=== PATIENT | female | born 1940 | race Caucasian/White ===

== ENCOUNTER → 2017-01-17 | Outpatient (CLI) | payer MEDICARE, BC ==
[~2017-01-17] MED LIST: EPITOL PO; FERROUS SU325 MG/TAB PO; FOSAMAX70 MG PO; LEVOXYL0.025 MG PO; PRILOSEC 20MG20 MG PO; TOPROL XL 25MG25 MG PO; TYLENOL 325MG325 MG PO
== END ==
LOC: MC.RAD 09:51
DX: Z12.31 Encounter for screening mammogram for malignant neoplasm of breast (principal)

== ENCOUNTER 2017-10-13 14:51 | Emergency (ER) | payer MEDICARE, BC ==
[~2017-10-13] VITALS: Ht 157.5 cm; Wt 72.7 kg
[2017-10-13 14:55] VITALS: TEMP 97.7
[2017-10-13] MEDS ORDERED: EXCEDRIN1 TAB PO (15:11)
[2017-10-13 15:22] LABS: BASO % 0.4 % (0.0-2.0); EOS % 0.4 % (0-4.0); GRAN # 5.4 (1.4-6.5); GRAN % 80.9 % (42.2-75.2); LYMPH # 0.8 (1.2-3.4); LYMPH % 11.2 % (20.0-51.0); MEAN CELL VOLUME 101 fl (80.0-100.0); MEAN CORPUSCULAR HGB CONC 34 g/dl (33.0-37.0); MEAN PLATELET VOLUME 10.8 fl (7.4-10.4); MONO # 0.5 (0.1-0.6); MONO % 6.7 % (1.7-9.3); PLATELET COUNT 185 K/mm3 (130-400); REDCELL DISTRIBUTION WIDTH-CV 13.2 % (11.5-14.5)
[2017-10-13 15:27] LABS: HEMATOCRIT 33.4 % (37.0-47.0); HEMOGLOBIN 11.2 g/dl (12.5-16.0); MEAN CORPUSCULAR HEMOGLOBIN 34 pg (27.0-31.0)
[2017-10-13 15:32] LABS: ALANINE AMINOTRANSFERASE 84 U/L (9-52); ALKALINE PHOSPHATASE 94 U/L (50-136); ANION GAP 13 mmol/L (7-16); AST,SGOT 53 U/L (15-37); BILIRUBIN,TOTAL 0.3 mg/dL (0.0-1.0); BLOOD UREA NITROGEN 20 mg/dL (7-17); CALCIUM 8.9 mg/dL (8.4-10.2); CARBON DIOXIDE 22 mmol/L (22-30); CHLORIDE 103 mmol/L (98-107); CREATININE, serum 0.91 mg/dL (0.52-1.25); GLUCOSE 124 mg/dL (74-106); POTASSIUM 4.3 mmol/L (3.4-5.0); SODIUM 138 mmol/L (137-145); TOTAL PROTEIN 6.9 gm/dL (6.4-8.2)
[2017-10-13 15:44] LABS: TROPONIN-I < 0.012 ng/mL (0.000-0.034)
[2017-10-13 17:19] VITALS: BP 171/83; PULSE 54
== END 2017-10-13 17:19 | disposition short-term general hospital (02) ==
LOC: COL.ER 14:51
PROVIDERS: Emergency Medicine
DX: I44.1 Atrioventricular block, second degree (principal); I10 Essential (primary) hypertension; E03.9 Hypothyroidism, unspecified; G50.0 Trigeminal neuralgia; Z90.89 Acquired absence of other organs; Z98.890 Other specified postprocedural states; Z82.49 Family history of ischemic heart disease and other diseases of the circulatory system

== ENCOUNTER → 2018-03-07 | Outpatient (CLI) | payer MEDICARE, BC ==
[~2018-03-07] MED LIST changes: +EXCEDRIN1 TAB PO
== END ==
LOC: MC.RAD 13:36
DX: Z12.31 Encounter for screening mammogram for malignant neoplasm of breast (principal)

== ENCOUNTER → 2019-01-26 | Outpatient (CLI) | payer MEDICARE, BC | LOC: COL.VAS 09:14 | DX: I65.23 Occlusion and stenosis of bilateral carotid arteries (principal) ==

== ENCOUNTER → 2020-02-23 | Outpatient (CLI) | payer MEDICARE, BC | LOC: MC.RAD 10:49 | DX: Z12.31 Encounter for screening mammogram for malignant neoplasm of breast (principal) ==

== ENCOUNTER → 2020-06-27 | Outpatient (CLI) | payer MEDICARE, BC | LOC: COL.RAD 06-24 08:15 | DX: M54.6 Pain in thoracic spine (principal) ==

== ENCOUNTER 2021-01-16 10:51 | Inpatient (IN) | payer MEDICARE, BC ==
[~2021-01-16] VITALS: Ht 154.9 cm; Wt 77.3 kg
[2021-01-16] MEDS ORDERED: PRINIVIL20 MG PO (11:05)
[2021-01-16] MEDS ORDERED: ASPIRIN 81M81 MG/TA2 PO (11:06)
[2021-01-16] MEDS ORDERED: PRINZIDE 25 MG-1 TAB PO (11:06)
[2021-01-16] MEDS ORDERED: FOSAMAX 70MG TA70 MG PO (11:07)
[2021-01-16] MEDS ORDERED: ONE-A-DAY ESSE1 EACH PO (11:07)
[2021-01-16] MEDS ORDERED: OMEGA-3 FISH1000 MG PO (11:08)
[2021-01-16 11:49] LABS: BASO % 0.1 % (0.0-2.0); EOS % 0.1 % (0-4.0); HEMOGLOBIN 13.5 g/dl (12.5-16.0); LYMPH # 0.6 (1.2-3.4); MEAN CELL VOLUME 91 fl (80.0-100.0); MEAN CORPUSCULAR HEMOGLOBIN 33 pg (27.0-31.0); MEAN CORPUSCULAR HGB CONC 37 g/dl (33.0-37.0); MONO # 0.8 (0.1-0.6); MONO % 10.4 % (1.7-9.3); PLATELET COUNT 222 K/mm3 (130-400); RED BLOOD COUNT 4.04 M/mm3 (4.10-5.30); REDCELL DISTRIBUTION WIDTH-CV 11.6 % (11.5-14.5)
[2021-01-16 11:51] LABS: HEMATOCRIT 36.7 % (37.0-47.0)
[2021-01-16 12:45] LABS: COLLECTION METHOD CLEAN CATCH
[2021-01-16 12:56] LABS: MUCOUS Present /lpf; PH 7 (5-8); SQUAMOUS EPITHELIAL None Seen /hpf; URINE APPEARANCE Clear; URINE BACTERIA None Seen /hpf; URINE BILIRUBIN Negative (NEGATIVE); URINE BLOOD Negative (NEGATIVE); URINE COLOR Yellow; URINE GLUCOSE Negative (NEGATIVE); URINE KETONE Trace (NEGATIVE); URINE LEUKOCYTE ESTERASE Negative (NEGATIVE); URINE NITRATE Negative (NEGATIVE); URINE PROTEIN(semi-quant) Negative (NEGATIVE); URINE UROBILINOGEN Negative (NEGATIVE)
[2021-01-16 13:09] LABS: ALANINE AMINOTRANSFERASE 38 U/L (4-34); ALBUMIN 4.5 gm/dL (3.5-5.0); ALKALINE PHOSPHATASE 51 U/L (50-136); ANION GAP 10 mmol/L (7-16); AST,SGOT 70 U/L (15-37); BILIRUBIN,TOTAL 0.9 mg/dL (0.0-1.0); BLOOD UREA NITROGEN 11 mg/dL (7-17); CALCIUM 9.1 mg/dL (8.4-10.2); CARBON DIOXIDE 26 mmol/L (22-30); CREATININE, serum 0.59 (0.52-1.25); GLUCOSE 129 mg/dL (74-106); TOTAL PROTEIN 7.7 gm/dL (6.4-8.2)
[2021-01-16 13:12] LABS: C-REACTIVE PROTEIN < 0.5 mg/dL (0.0-0.9)
[2021-01-16 13:14] LABS: CHLORIDE 77 mmol/L (98-107); SODIUM 113 mmol/L (137-145)
[2021-01-16] MEDS ORDERED: APRESOLINE 25MG25 MG PO (17:34)
[2021-01-16 17:54] LABS: CALCIUM 8.9 mg/dL (8.4-10.2); CREATININE, serum 0.65 (0.52-1.25); POTASSIUM 3.9 mmol/L (3.4-5.0)
[2021-01-16 18:05] VITALS: BP 137/62; PULSE 66; TEMP 98.4
--- NOTE | 2021-01-16 18:28 | NUR ---
All admission charting has been completed and patient is doing well. She did c/o aching shoulder pain which she said is normal for her. Son is currently in the room with the patient. Patient understands that she is to have no free water, and gatorade has been ordered for the patient. Seizure pads have been placed on the bed for seizure precautions d/t low sodium.
--- NOTE | 2021-01-16 19:02 | NUR ---
Received report from Kathleen. Patient awake in bed. With NS at 75ml/hr infusing in her left AC.
[2021-01-16 20:20] VITALS: BP 143/64; PULSE 74; TEMP 98
[2021-01-16 23:20] VITALS: BP 136/64; PULSE 68; TEMP 97.9
[2021-01-17 00:51] LABS: CALCIUM 8.5 mg/dL (8.4-10.2); CREATININE, serum 0.7 (0.52-1.25); POTASSIUM 3.7 mmol/L (3.4-5.0)
[2021-01-17 03:39] VITALS: BP 131/58; PULSE 71; TEMP 98.4
[2021-01-17 05:08] LABS: BASO % 0.2 % (0.0-2.0); EOS % 0.7 % (0-4.0); GRAN # 3.6 (1.4-6.5); HEMOGLOBIN 12.1 g/dl (12.5-16.0); LYMPH # 1.2 (1.2-3.4); LYMPH % 20.5 % (20.0-51.0); MEAN CELL VOLUME 91 fl (80.0-100.0); MEAN CORPUSCULAR HEMOGLOBIN 33 pg (27.0-31.0); MEAN CORPUSCULAR HGB CONC 37 g/dl (33.0-37.0); MEAN PLATELET VOLUME 9.7 fl (7.4-10.4); MONO % 17.1 % (1.7-9.3); PLATELET COUNT 195 K/mm3 (130-400); RED BLOOD COUNT 3.64 M/mm3 (4.10-5.30); REDCELL DISTRIBUTION WIDTH-CV 11.8 % (11.5-14.5)
[2021-01-17 05:14] LABS: HEMATOCRIT 33.1 % (37.0-47.0)
[2021-01-17 05:17] LABS: ALBUMIN 3.5 gm/dL (3.5-5.0); BILIRUBIN,TOTAL 0.6 mg/dL (0.0-1.0); CALCIUM 8.5 mg/dL (8.4-10.2); CREATININE, serum 0.67 (0.52-1.25); POTASSIUM 3.7 mmol/L (3.4-5.0); TOTAL PROTEIN 6.2 gm/dL (6.4-8.2)
--- NOTE | 2021-01-17 06:00 | NUR ---
Patient had uneventful night. Sodium has improved with latest result of 122 and chloride of 91. She denies pain.
[2021-01-17 07:38] VITALS: BP 143/57; PULSE 66; TEMP 97.8
[2021-01-17 09:13] LABS: CALCIUM 8.6 mg/dL (8.4-10.2); CREATININE, serum 0.72 (0.52-1.25); POTASSIUM 3.6 mmol/L (3.4-5.0)
--- NOTE | 2021-01-17 10:04 | NUR ---
Discharge Plan: Home Sw met with the pt who stated her preference to return home once medically stable. The pt lives alone at home in [place], [place], and has a son, Andrea Kincaid (ph# [phone]) of [place]. The pt is independent on all ADLs and does not use any DME. The pt PCP is Brandon Lee at [facility] and uses [facility] for her pharmacy. The pt has no trouble obtaining her medications. The pt does have a DPAO-HC, but stated she did not bring it in with her, as this was a unexpected admission for her. No other needs where stated. Sw to wait further recommendations and follow up as needed.
--- NOTE | 2021-01-17 11:36 | NUR ---
This patient has been doing very well today. Sodium levels are improving and the patient is not experiencing any complications r/t hyponatremia. This morning before administering morning meds, at approx. 0900, the patient called stating her IV pump was going off. This RN assessed the IV and noticed that the catheter appeared to be bent. The IV was located in the left AC and per protocol, it was due to be replaced before the end of the shift. Erna replaced the IV in the left hand and fluids were restarted. Shortly after, fluids were dc'd. Patient walked with PT and appeared to be doing very well with ambulation.
[2021-01-17 11:56] VITALS: BP 117/70; PULSE 79; TEMP 98.2
[2021-01-17 13:19] LABS: CALCIUM 8.6 mg/dL (8.4-10.2); CREATININE, serum 0.66 (0.52-1.25)
--- NOTE | 2021-01-17 13:50 | NUR ---
Patient resting in bed, ate all of her lunch. Says she feels well other than a headache, which she is rating a 5/6 for pain. This RN will be giving the patient some PRN tylenol.
[2021-01-17 15:27] LABS: CALCIUM 8.7 mg/dL (8.4-10.2); CREATININE, serum 0.68 (0.52-1.25); POTASSIUM 3.8 mmol/L (3.4-5.0)
[2021-01-17 15:55] VITALS: BP 131/68; PULSE 73; TEMP 98.2
--- NOTE | 2021-01-17 18:19 | NUR ---
Patient is currently sitting in the chair in her room. She denies any pain at this time and states that the tylenol she recieved earlier helped with her headache. Patient has not had any other complaints.
--- NOTE | 2021-01-17 19:15 | NUR ---
Received report from Kathleen. Patient awake sitting in the recliner with visitors at bedside. She states hospitalist didn't see her today. She denies needs at this time.
[2021-01-17 20:13] VITALS: BP 154/52; PULSE 78; TEMP 98.2
[2021-01-18 01:30] VITALS: BP 124/58; PULSE 65; TEMP 97.7
[2021-01-18 04:20] VITALS: BP 126/93; PULSE 61; TEMP 97.9
--- NOTE | 2021-01-18 05:37 | NUR ---
Patient had uneventful night. She denies pain. Vital signs stable.
[2021-01-18 06:43] LABS: BASO % 0.4 % (0.0-2.0); EOS # 0.1 (0.0-0.7); EOS % 1.8 % (0-4.0); GRAN # 3.1 (1.4-6.5); GRAN % 60.9 % (42.2-75.2); HEMOGLOBIN 12.5 g/dl (12.5-16.0); LYMPH # 1.1 (1.2-3.4); LYMPH % 22.2 % (20.0-51.0); MEAN CORPUSCULAR HEMOGLOBIN 34 pg (27.0-31.0); MEAN CORPUSCULAR HGB CONC 35 g/dl (33.0-37.0); MONO # 0.7 (0.1-0.6); MONO % 14.3 % (1.7-9.3); PLATELET COUNT 216 K/mm3 (130-400); RED BLOOD COUNT 3.71 M/mm3 (4.10-5.30); REDCELL DISTRIBUTION WIDTH-CV 12.5 % (11.5-14.5)
[2021-01-18 06:44] LABS: HEMATOCRIT 35.7 % (37.0-47.0); MEAN CELL VOLUME 96 fl (80.0-100.0)
[2021-01-18 07:01] LABS: CALCIUM 8.9 mg/dL (8.4-10.2); CREATININE, serum 0.62 (0.52-1.25); POTASSIUM 3.8 mmol/L (3.4-5.0)
[2021-01-18 08:00] VITALS: BP 153/59; PULSE 72; TEMP 98.4
[2021-01-18] MEDS ORDERED: PRINIVIL20 MG PO (08:33)
--- NOTE | 2021-01-18 10:39 | NUR ---
Initial visit; 'Rose" thanked Math Teacher for looking in on her and offering God's blessings and prayer.
[2021-01-18 12:00] VITALS: BP 152/61; BP 167/61; PULSE 74; TEMP 98.1
--- NOTE | 2021-01-18 12:08 | NUR ---
0700 PT RECEIVED RESTING IN BED. NO S/S OF DISTRESS NOTED. PT DENIES HAVING PAIN. 0800 PT ATE HER BREAKFAST. VS STABLE 0900 MEDICATIONS ADMINISTERED ORDERED. 1200PT RECEIVED DISCHARGE INSTRUCTIONS. PT VOICED NO CONCERNS. ALL QUESTIONS ANSWERED. IV ACCESS REMOVED. PT IS WAITING ON [id number] TO PICK HER UP.
== END 2021-01-18 13:26 | disposition home or self-care (01) | DRG 641 ==
LOC: COL.ER 10:51 → MEDICAL 14:22
PROVIDERS: Nurse Practitioner; Physician Assistant; ADMIT Internal Medicine
DX: E87.1 Hypo-osmolality and hyponatremia (principal); I16.0 Hypertensive urgency; I10 Essential (primary) hypertension; E87.8 Other disorders of electrolyte and fluid balance, not elsewhere classified; E03.9 Hypothyroidism, unspecified; K21.9 Gastro-esophageal reflux disease without esophagitis; G50.0 Trigeminal neuralgia; R94.5 Abnormal results of liver function studies; M85.80 Other specified disorders of bone density and structure, unspecified site; R11.2 Nausea with vomiting, unspecified; Z79.82 Long term (current) use of aspirin; Z79.890 Hormone replacement therapy; Z88.6 Allergy status to analgesic agent; Z20.822 Contact with and (suspected) exposure to COVID-19
CPT/HCPCS: 99223-AI; 99232-AI; 99239; J2405; J7030

== ENCOUNTER → 2022-02-20 | Outpatient (CLI) | payer MEDICARE, BC ==
[~2022-02-20] MED LIST changes: +APRESOLINE 25MG25 MG PO; +ASPIRIN 81M81 MG/TA2 PO; +FOSAMAX 70MG TA70 MG PO; +OMEGA-3 FISH1000 MG PO; +ONE-A-DAY ESSE1 EACH PO; +PRINIVIL20 MG PO; +PRINZIDE 25 MG-1 TAB PO
== END ==
LOC: MC.RAD 09:50
DX: Z12.31 Encounter for screening mammogram for malignant neoplasm of breast (principal)